=== PATIENT | male | born 1995 | race Two or more races ===

== ENCOUNTER 2019-04-02 20:43 | Emergency (ER) | payer OTHER ==
[~2019-04-02] VITALS: Ht 180.3 cm; Wt 63.5 kg
[2019-04-02 20:52] VITALS: BP 161/84
--- NOTE | 2019-04-02 20:54 | NUR ---
ER Nurse Note: Pt walked in c/o sore throat that got worse in pain 04/02. 04/19 pain. Pt stated he forcefully tried to spit up mucus and found streaks of blood. Pt stated difficulty swollowing, cough, slightly difficult to breath d/t mucus build up. Throat intact, no occlusion noted. Able to speak with clear speech, no signs of resp distress. Will continue to monitor.
--- NOTE | 2019-04-02 21:11 | Emergency Room Report ---
History of Present Illness General Chief Complaint: Sore Throat Source: Patient, Family Member - Mother Present Illness HPI Patient presents with cough and sore throat and the feeling of increased mucus production. Chronic problem however is worsened today. He feels he coughed up some blood. Had some wheezing after 2 to 3-hour bout of coughing. He had some wheezing with coughing earlier today. The blood is minimal. He also feels chest pain with the cough. The pain is rated 9/10 and worse with breathing. Aching in his chest. He has some anxiety about the inability to cough up that mucus he feels in his chest. He has sinus problems with congestion. No ear pain. Has not seen a doctor for this problem in the past. No fevers, chills, palpitations, nausea, vomiting, diarrhea, dysuria, abdominal pain, joint pain, rashes, depression, visual changes, headache. Allergies: Coded Allergies: No Known Allergies (Unverified , 04/02/19) Patient History Past Medical History: see triage record Social History: Reports: drug use - Smokes THC Social History Narrative With his mother Reviewed Nursing Documentation: PMH: Agreed; PSxH: Agreed Review of Systems All Other Systems: negative except mentioned in HPI Physical Exam Vital Signs Date Time Temp Pulse Resp B/P (MAP) Pulse Ox O2 Delivery O2 Flow Rate FiO2 04/02/19 20:45 97.7 90 18 161/84 (109) 94 Room Air Sp02 EP Interpretation: reviewed, abnormal - Interpreted is slightly low by me General Appearance: well appearing, no apparent distress, GCS 15 Head: normocephalic Eyes: bilateral eye normal inspection, bilateral eye PERRL ENT: hearing grossly normal, TMs + canals normal, pharyngeal erythema - Lymphoid tissue Neck: supple Respiratory: lungs clear, normal breath sounds, other - Attempting to cough Cardiovascular #1: regular rate, rhythm Cardiovascular #2: 2+ radial (R) Gastrointestinal: normal inspection, scaphoid Musculoskeletal: gait/station normal, normal range of motion Neurologic: alert, oriented x3, grossly normal Psychiatric: anxious Skin: normal color, no rash Medical Decision Making Diagnostic Impression: Primary Impression: Pharyngeal inflammation Qualified Codes: J02.9 - Acute pharyngitis, unspecified Additional Impressions: Postnasal drip Bronchospasm ER Course Patient presents with cough, wheezing, sore throat and chronic mucus in his throat and chest with coughing up a scant amount of blood and chest pain. Differential includes pulmonary embolus, pneumonia, postnasal drip, anxiety, viral syndrome, bronchospasm amongst others. Chest x-ray indicated. Because of the history of wheezing breathing treatments are ordered. In addition to Claritin and is ordered as well as analgesics. As there is no fever antibiotics are not indicated. CXR clear and normal. Improved after breathing treatment. O2 sat saturation 99%. Discussed findings with mother and patient. Discussed the probable etiology of postnasal drip. Clinically no evidence of pulmonary embolus. By history there is evidence of bronchospasm. Discussed the need for follow-up and also for avoidance of smoke. No medical emergency at this time. Patient stable for outpatient observation and treatment. Chest X-Ray Diagnostic Results Chest X-Ray Diagnostic Results : Chest X-Ray Ordered: Yes # of Views/Limited/Complete: 1 View Indication: Shortness of Breath EP Interpretation: Yes Interpretation: no consolidation, no effusion, no pneumothorax Impression: No acute disease Electronically Signed by: Electronically signed by Willian Da Silva MD Last Vital Signs Date Time Temp Pulse Resp B/P (MAP) Pulse Ox O2 Delivery O2 Flow Rate FiO2 04/02/19 22:40 97.7 75 18 161/84 99 Room Air 21 Status: improved Disposition: HOME, SELF-CARE Condition: Improved Scripts Mometasone Furoate (NASONEX) 17 Gm [place].pump 2 SPRAYS NASAL DAILY, #1 GM 0 Refills Prov: Willian Da Silva MD 04/02/19 Chlorpheniramine Maleate (CHLOR-TRIMETON) 4 Mg Tablet 4 MG PO Q6HR PRN for congestion, #20 TAB Prov: Willian Da Silva MD 04/02/19 Guaifenesin/Codeine Phos* (ROBITUSSIN AC*) 118 Ml Liquid 5 ML ORAL Q6H PRN for For Cough, #90 ML 0 Refills Prov: Willian Da Silva MD 04/02/19 Albuterol Sulfate* (ALBUTEROL SULFATE MDI*) 8.5 Gm Hfa.aer.ad 2 PUFF INH Q6H, #1 EA 0 Refills Prov: Willian Da Silva MD 04/02/19 Referrals: [facility],REFERRING (PCP) Willian Da Silva MD Apr 02, 2019 21:11
[2019-04-02] MEDS ORDERED: Albuterol/Ipratropium 3ml neb HHN ONE (21:15)
--- NOTE | 2019-04-02 21:38 | Diagnostic Imaging Report ---
EXAM: XR Chest, 1 View CLINICAL HISTORY: COUGH TECHNIQUE: Frontal view of the chest. COMPARISON: No relevant prior studies available. FINDINGS: Lungs: No consolidation or mass. Pleural space: No acute findings Heart: No cardiomegaly. Mediastinum: Unremarkable. Bones/joints: No acute findings. IMPRESSION: No acute cardiopulmonary process.
[2019-04-02] MEDS ORDERED: NASONEX17 GM NASAL (22:27)
[2019-04-02] MEDS ORDERED: CHLOR-TRIMETON4 MG PO (22:27)
[2019-04-02] MEDS ORDERED: GUAIFENESIN-CO118 M1 ORAL (22:27)
[2019-04-02] MEDS ORDERED: ALBUTEROL SULF8.5 GM INH (22:27)
[2019-04-02 22:40] VITALS: BP 161/84
--- NOTE | 2019-04-02 22:40 | NUR ---
ED Nurse Note: Pt cleared by health care Provider for discharge. DC instructions/prescription was given and explained to pt and verbalized understanding of teachings. All medical deviecs such as ID band removed. Pt is AAO x4, ambulatory and left with all personal belongings.
== END 2019-04-02 22:40 | disposition home or self-care (01) ==
LOC: EMR 21:06
DX: J98.01 Acute bronchospasm (principal); J02.9 Acute pharyngitis, unspecified; R09.82 Postnasal drip; F41.9 Anxiety disorder, unspecified; F12.10 Cannabis abuse, uncomplicated
CPT/HCPCS: 71045; 94640; 94664; 99283; J7620

== ENCOUNTER 2020-06-03 15:47 | Emergency (ER) | payer OTHER ==
[~2020-06-03] VITALS: Ht 183.5 cm; Wt 65.8 kg
[~2020-06-03 15:47] MED LIST: ALBUTEROL SULF8.5 GM INH; CHLOR-TRIMETON4 MG PO; GUAIFENESIN-CO118 M1 ORAL; NASONEX17 GM NASAL
[2020-06-03 16:00] VITALS: BP 134/81
--- NOTE | 2020-06-03 16:22 | Emergency Room Report ---
History of Present Illness General Chief Complaint: Palpitations Source: Patient Present Illness HPI Patient complains of several weeks of feeling palpitations. Started a week and a half ago. When he feels that he gets dizzy. He also has some discomfort in his chest that radiates into his back of his neck. In a last very long usually. Sometimes they occur when he is playing videogames. He has not been evaluated for this in the past. The longest this lasted is maybe 10 to 15 minutes. During that time is intermittent. During the 10 to 15-minute period of it is seem to get worse and he starts to feel tingling in his hands. This may be a little worse on the left-hand side. In addition when he sits crosslegged he feels numbness in the dorsal lateral side of his right foot. He denies fevers or chills. Sometimes has some nausea associated with this. He does have increased stress at this time as he is not working. Factors for cardiac disease: No family history no diabetes no hypertension unknown cholesterol. He does smoke cannabis. He may have changed the type about the time this began. No sore throat, chest pain, vomiting, diarrhea, dysuria, abdominal pain, shortness of breath, joint pain, rashes, visual changes, dizziness, headache. Allergies: Coded Allergies: No Known Allergies (Unverified , 04/02/19) COVID-19 Screening Contact w/high risk pt: No Experienced COVID-19 symptoms?: No COVID-19 Testing performed SCIENTIFIC GLASS BLOWER: No Patient History Past Medical History: see triage record Social History: Reports: drug use - THC; Denies: smoking, alcohol use Social History Narrative unemployed and living with sibs and parents Reviewed Nursing Documentation: PMH: Agreed; PSxH: Agreed Nursing Documentation-PMH Past Medical History: No Stated History Review of Systems All Other Systems: negative except mentioned in HPI Physical Exam Vital Signs Date Time Temp Pulse Resp B/P (MAP) Pulse Ox O2 Delivery O2 Flow Rate FiO2 06/03/20 15:55 98.1 84 22 134/81 (98) 95 06/03/20 16:00 Room Air Sp02 EP Interpretation: reviewed, normal General Appearance: well appearing, no apparent distress, GCS 15 Head: normocephalic Eyes: bilateral eye normal inspection, bilateral eye PERRL, bilateral eye EOMI ENT: moist mucus membranes Neck: supple Respiratory: lungs clear, normal breath sounds Cardiovascular #1: regular rate, rhythm Cardiovascular #2: 2+ radial (R) Gastrointestinal: normal inspection, normal bowel sounds, non tender, no mass, non-distended Musculoskeletal: back normal, normal range of motion, gait/station normal Neurologic: alert, oriented x3, grossly normal Psychiatric: anxious Skin: no rash, warm/dry Medical Decision Making Diagnostic Impression: Primary Impression: Palpitations ER Course Patient presents with palpitations for a week and half intermittently. Differential includes electrolyte imbalance, acute myocardial infarction, arrhythmia, anxiety and possibly stress amongst others. Patient evaluated with EKG, chest x-ray and labs. EKG sinus rhythm rate [address]-T wave changes. Chest x-ray normal. Labs unremarkable. Patient says that he had 3 shocks in his heart during the observation time. Nothing seen on monitor. Will give propranolol 10 mg p.o. and see how his response is. Some improvement with propranolol. Discussed findings with patient and treatment plan. Also discussed possible hyperventilation complicating initial symptomatology. Patient advised to seek outpatient follow-up. Patient stable for outpatient observation and treatment. Laboratory Tests Test 06/03/20 16:13 06/03/20 17:00 White Blood Count 5.0 K/UL (4.8-10.8) Red Blood Count 5.66 M/UL (4.70-6.10) Hemoglobin 15.5 G/DL (14.2-18.0) Hematocrit 46.6 % (42.0-52.0) Mean Corpuscular Volume 82 FL (80-99) Mean Corpuscular Hemoglobin 27.4 PG (27.0-31.0) Mean Corpuscular Hemoglobin Concent 33.3 G/DL (32.0-36.0) Red Cell Distribution Width 11.8 % (11.6-14.8) Platelet Count 161 K/UL (150-450) Mean Platelet Volume 9.3 FL (6.5-10.1) Neutrophils (%) (Auto) 61.5 % (45.0-75.0) Lymphocytes (%) (Auto) 26.1 % (20.0-45.0) Monocytes (%) (Auto) 7.9 % (1.0-10.0) Eosinophils (%) (Auto) 3.8 % (0.0-3.0) H Basophils (%) (Auto) 0.6 % (0.0-2.0) Prothrombin Time 11.1 SEC (9.30-11.50) Prothrombin Time INR 1.0 (0.9-1.1) Activated Partial Thromboplast Time 26 SEC (23-33) Sodium Level 137 MMOL/L (136-145) Potassium Level 4.0 MMOL/L (3.5-5.1) Chloride Level 103 MMOL/L (98-107) Carbon Dioxide Level 28 MMOL/L (21-32) Anion Gap 6 mmol/L (5-15) Blood Urea Nitrogen 8 mg/dL (7-18) Creatinine 1.1 MG/DL (0.55-1.30) Estimated Glomerular Filtration Rate > 60 mL/min (>60) Glucose Level 109 MG/DL (74-106) H Calcium Level 9.0 MG/DL (8.5-10.1) Total Bilirubin 0.7 MG/DL (0.2-1.0) Aspartate Amino Transferase (AST) 18 U/L (15-37) Alanine Aminotransferase (ALT) 44 U/L (12-78) Alkaline Phosphatase 62 U/L (46-116) Total Creatine Kinase 135 U/L (26-308) Troponin I 0.000 ng/mL (0.000-0.056) Pro-B-Type Natriuretic Peptide < 5 pg/mL (0-125) Total Protein 7.7 G/DL (6.4-8.2) Albumin 4.4 G/DL (3.4-5.0) Globulin 3.3 g/dL Albumin/Globulin Ratio 1.3 (1.0-2.7) Urine Color Pale yellow Urine Appearance Clear Urine pH 8 (4.5-8.0) Urine Specific [place] 1.010 (1.005-1.035) Urine Protein Negative (NEGATIVE) Urine Glucose (UA) Negative (NEGATIVE) Urine Ketones Negative (NEGATIVE) Urine Blood Negative (NEGATIVE) Urine Nitrite Negative (NEGATIVE) Urine Bilirubin Negative (NEGATIVE) Urine Urobilinogen Normal MG/DL (0.0-1.0) Urine Leukocyte Esterase Negative (NEGATIVE) Urine Opiates Screen Negative (NEGATIVE) Urine Barbiturates Screen Negative (NEGATIVE) Phencyclidine (PCP) Screen Negative (NEGATIVE) Urine Amphetamines Screen Negative (NEGATIVE) Urine Benzodiazepines Screen Negative (NEGATIVE) Urine Cocaine Screen Negative (NEGATIVE) Urine Marijuana (THC) Screen Positive (NEGATIVE) H EKG Diagnostic Results Troponin ordered: Yes Rate: normal Rhythm: NSR ST Segments: no acute changes Rhythm Strip Diag. Results EP Interpretation: yes Rhythm: NSR, no PVC's, no ectopy Chest X-Ray Diagnostic Results Chest X-Ray Diagnostic Results : Chest X-Ray Ordered: Yes # of Views/Limited/Complete: 1 View Indication: Other EP Interpretation: Yes Interpretation: no consolidation, no effusion, no pneumothorax Impression: No acute disease Electronically Signed by: Electronically signed by Willian Da Silva MD Last Vital Signs Date Time Temp Pulse Resp B/P (MAP) Pulse Ox O2 Delivery O2 Flow Rate FiO2 06/03/20 17:41 98.1 84 19 128/79 96 Room Air Status: improved Disposition: HOME, SELF-CARE Condition: Improved Scripts Propranolol Hcl* (INDERAL*) 10 Mg Tablet 5 MG ORAL BID PRN for palpitations, #10 TAB 0 Refills Prov: Willian Da Silva MD 06/03/20 Referrals: [facility],REFERRING (PCP) Willian Da Silva MD Jun 03, 2020 16:22
[2020-06-03 16:23] LABS: BASOPHILS % (AUTO) 0.6 % (0.0-2.0); EOSINOPHILS % (AUTO) 3.8 % (0.0-3.0); HEMATOCRIT 46.6 % (42.0-52.0); HEMOGLOBIN 15.5 G/DL (14.2-18.0); LYMPHOCYTES % (AUTO) 26.1 % (20.0-45.0); MEAN CORPUSCULAR VOLUME 82 FL (80-99); MONOCYTES % (AUTO) 7.9 % (1.0-10.0); NEUTROPHILS % (AUTO) 61.5 % (45.0-75.0); PLATELET COUNT 161 K/UL (150-450); RED BLOOD COUNT 5.66 M/UL (4.70-6.10); RED CELL DISTRIBUTION WIDTH 11.8 % (11.6-14.8)
[2020-06-03 16:37] LABS: ANION GAP 6 mmol/L (5-15); BLOOD UREA NITROGEN 8 mg/dL (7-18); CARBON DIOXIDE 28 MMOL/L (21-32); CHLORIDE 103 MMOL/L (98-107); CREATININE 1.1 MG/DL (0.55-1.30); SODIUM 137 MMOL/L (136-145)
[2020-06-03 16:48] LABS: ALANINE AMINOTRANSFERASE 44 U/L (12-78); ALBUMIN 4.4 G/DL (3.4-5.0); ALBUMIN/GLOBULIN RATIO 1.3 (1.0-2.7); ALKALINE PHOSPHATASE 62 U/L (46-116); ASPARTATE AMINO TRANSFERASE 18 U/L (15-37); BILIRUBIN,TOTAL 0.7 MG/DL (0.2-1.0); CREATINE KINASE 135 U/L (26-308)
--- NOTE | 2020-06-03 17:05 | Diagnostic Imaging Report ---
EXAM: XR Chest, 1 View CLINICAL HISTORY: CP TECHNIQUE: Frontal view of the chest. COMPARISON: 04/02/19. FINDINGS: Lungs: Unremarkable. No consolidation. Pleural space: Unremarkable. No pneumothorax. Heart: Unremarkable. No cardiomegaly. Mediastinum: Unremarkable. Bones/joints: Slight thoracic dextrocurvature. IMPRESSION: No evidence of acute pulmonary disease
[2020-06-03 17:08] LABS: APPEARANCE,URINE CLEAR; BILIRUBIN, URINE NEGATIVE (NEGATIVE); COLOR,URINE PALE YELLOW; GLUCOSE, URINE (UA) NEGATIVE (NEGATIVE); KETONES,URINE NEGATIVE (NEGATIVE); LEUKOCYTE ESTERASE ,URINE NEGATIVE (NEGATIVE); NITRITE,URINE NEGATIVE (NEGATIVE); PH,URINE 8 (4.5-8.0); PROTEIN,URINE NEGATIVE (NEGATIVE); UROBILINOGEN,URINE NORMAL MG/DL (0.0-1.0)
[2020-06-03] MEDS ORDERED: Propranolol 10mg tab ORAL ONE (17:15)
[2020-06-03] MEDS ORDERED: PROPRANOLOL HCL10 MG ORAL (17:30)
[2020-06-03 17:41] VITALS: BP 128/79
== END 2020-06-03 17:41 | disposition home or self-care (01) ==
LOC: EMR 16:10
DX: R00.2 Palpitations (principal); R07.9 Chest pain, unspecified; M54.2 Cervicalgia; R11.0 Nausea
CPT/HCPCS: 36415; 71045; 80053; 80307; 81003; 82550; 83880; 84484; 85025; 85610; 85730; 93005; Z7502; 99283